=== PATIENT | male | born 1990 | race African-American/Black ===

== ENCOUNTER 2021-09-06 01:59 | Observation (INO) | payer SELFPAY ==
[2021-09-06] MEDS ORDERED: SODIUM CHLORIDE 1,000 ML IV STA ×2 (02:02→16:23)
[2021-09-06 03:05] LABS: INR 1.16 (0.83-1.09)
[2021-09-06 03:19] LABS: CHLORIDE 106 mmol/L (98-107); SODIUM 139 mmol/L (136-145)
[2021-09-06 03:22] LABS: ALBUMIN 4.1 g/dl (3.4-5.0); ANION GAP 10 MMOL/L (8-16); BLOOD UREA NITROGEN 7.2 mg/dL (7-18); CALCIUM 9.2 mg/dL (8.5-10.1); CO2 23 mmol/L (21-32)
[2021-09-06 03:23] LABS: GLUCOSE,RANDOM 84 mg/dL (74-106)
[2021-09-06] MEDS ORDERED: ONDANSETRON 4 MG/2 ML VIAL IVPUSH ONE (03:23)
[2021-09-06 03:25] LABS: SGPT/ALT 61 U/L (13-61)
[2021-09-06 03:26] LABS: CREATININE 0.9 mg/dL (0.55-1.3); SGOT/AST 143 U/L (15-37)
[2021-09-06 03:27] LABS: BILIRUBIN,TOTAL 0.4 mg/dL (0.2-1); TOT PROT 7.4 g/dl (6.4-8.2)
[2021-09-06] MEDS ORDERED: ONDANSETRON 4 MG/2 ML VIAL ONE (03:33)
[2021-09-06 03:35] LABS: ALK PHOS 46 U/L (45-117)
[2021-09-06 03:48] LABS: BASO % 0.7 % (0-2.0); EOS % 4.1 % (0-4.5); HEMOGLOBIN 14.2 GM/dL (11.7-16.9); LYMPH % 24.9 % (8-40); MCH 27.3 pg (25.7-33.7); MEAN CELL VOLUME 82.9 fl (80-96); MEAN PLT VOLUME 8.4 fl (7.5-11.1); MONO % 4.9 % (3.8-10.2); NEUT % 65.4 % (42.8-82.8); PLATELET COUNT 264 10^3/uL (134-434); RBC 5.19 M/mm3 (4.00-5.60); RDW 14.2 % (11.9-15.9); WHITE BLOOD COUNT 9.1 K/mm3 (4.0-10.0)
[2021-09-06] MEDS ORDERED: SODIUM CHLORIDE 0.9% 500 ML INFUS.BAG IV ONE (05:10)
[2021-09-06 06:00] LABS: URINE APPEARANCE CLEAR; URINE BILIRUBIN NEGATIVE (NEGATIVE); URINE COLOR YELLOW; URINE GLUCOSE (UA) NEGATIVE (NEGATIVE); URINE KETONE NEGATIVE (NEGATIVE); URINE LEUK ESTERASE NEGATIVE (NEGATIVE); URINE NITRITE NEGATIVE (NEGATIVE); URINE PROTEIN NEGATIVE (NEGATIVE); URINE UROBILINOGEN 0.2 mg/dL (0.2-1.0)
[2021-09-06 06:09] LABS: OPIATES, URI NEGATIVE (NEGATIVE); URINE BARBITURATES NEGATIVE (NEGATIVE)
[2021-09-06 06:10] LABS: COCAINE, UR NEGATIVE (NEGATIVE); METHADONE, UR NEGATIVE (NEGATIVE); PHENCYCLIDINE,URINE NEGATIVE (NEGATIVE)
[2021-09-06 06:19] LABS: URINE AMPHETAMINES NEGATIVE (NEGATIVE); URINE BENZODIAZEPINES NEGATIVE (NEGATIVE)
[2021-09-06] MEDS ORDERED: LACTATED RINGERS SOLUTION 1,000 ML IV SCH (08:15)
[2021-09-06 13:15] VITALS: BMI 24.7
[2021-09-06] MEDS ORDERED: LACTATED RINGERS SOLUTION 1,000 ML/1,000 ML INFUS.BAG IV SCH (16:30)
[2021-09-06 16:55] LABS: CALCIUM 9.6 mg/dL (8.5-10.1)
[2021-09-06 16:56] LABS: BLOOD UREA NITROGEN 8.1 mg/dL (7-18)
[2021-09-06 16:59] LABS: CREATININE 0.8 mg/dL (0.55-1.3)
[2021-09-06 17:00] LABS: TOT PROT 7.6 g/dl (6.4-8.2)
[2021-09-06 17:04] LABS: ALBUMIN 4.4 g/dl (3.4-5.0)
[2021-09-06 17:08] LABS: BILIRUBIN,TOTAL 0.6 mg/dL (0.2-1)
[2021-09-06] MEDS: LACTATED RINGERS SOLUTION 1,000 ML IV SCH ×2 (18:02→23:23)
[2021-09-07 10:03] LABS: BASO % 0.9 % (0-2.0); EOS % 6.5 % (0-4.5); HEMATOCRIT 42.6 % (35.4-49); HEMOGLOBIN 13.6 GM/dL (11.7-16.9); MCH 26.5 pg (25.7-33.7); MCHC 31.9 g/dl (32.0-35.9); MEAN CELL VOLUME 83.1 fl (80-96); MEAN PLT VOLUME 8.9 fl (7.5-11.1); MONO % 4.7 % (3.8-10.2); NEUT % 50.9 % (42.8-82.8); PLATELET COUNT 275 10^3/uL (134-434); RBC 5.13 M/mm3 (4.00-5.60); RDW 14.5 % (11.9-15.9); WHITE BLOOD COUNT 7.2 K/mm3 (4.0-10.0)
[2021-09-07 10:04] VITALS: BP 154/96; PULSE 61; TEMP 98.6
[2021-09-07 10:20] LABS: CALCIUM 9.5 mg/dL (8.5-10.1)
[2021-09-07 10:21] LABS: ALBUMIN 3.9 g/dl (3.4-5.0); BLOOD UREA NITROGEN 6.4 mg/dL (7-18); MAGNESIUM 1.7 mg/dL (1.8-2.4)
[2021-09-07 10:24] LABS: CREATININE 0.8 mg/dL (0.55-1.3); PHOSPHOROUS 2.3 mg/dL (2.5-4.9)
[2021-09-07 10:25] LABS: BILIRUBIN,TOTAL 0.8 mg/dL (0.2-1); TOT PROT 6.8 g/dl (6.4-8.2)
[2021-09-07] MEDS ORDERED: MAGNESIUM SULF 50% (8.12 MEQ/2 ML-1 GM VIAL) IVPB ONE (10:37)
[2021-09-07] MEDS ORDERED: MAGNESIUM OXIDE 400 MG TABLET (FP) PO ONE (10:45)
[2021-09-07] MEDS: LACTATED RINGERS SOLUTION 1,000 ML IV SCH (11:04)
[2021-09-07] MEDS ORDERED: PT OWN MED DRAWER 7, Y5N ONE (11:14)
[2021-09-07] MEDS ORDERED: NAPH,MB-DB/K PH,MBDB POWDER PACKET PO ONE (11:30)
[2021-09-07] MEDS ORDERED: SODIUM PHOSPHATE - 30 MM in SODIUM CHLORIDE 500 ML IVPB ONE (12:00)
== END 2021-09-07 13:38 | disposition home or self-care (01) ==
LOC: JER 01:59 → JERBED 05:08 → J8W 09:26
PROVIDERS: ADMIT Internal Medicine; ATTEND Internal Medicine
PROC: 3E0337Z Introduction of Electrolytic and Water Balance Substance into Peripheral Vein, Percutaneous Approach (ICD-10-PCS; principal; 2021-09-06)
PROC: 3E033GC Introduction of Other Therapeutic Substance into Peripheral Vein, Percutaneous Approach (ICD-10-PCS; 2021-09-06)
DX: F10.129 Alcohol abuse with intoxication, unspecified (principal); M62.82 Rhabdomyolysis; F19.19 Other psychoactive substance abuse with unspecified psychoactive substance-induced disorder; Z29.9 Encounter for prophylactic measures, unspecified
CPT/HCPCS: 36415; 71045-TC-FY; 80053; 80061; 80307; 81003; 82550; 82553; 83735; 84100; 84484; 85025; 85027; 85610; 93005; 93010; 99285-25; C9803; G0378; U0003; U0005

== ENCOUNTER 2024-05-19 11:51 | Emergency (ER) | payer SELFPAY ==
[2024-05-19 11:55] VITALS: BP 129/71; PULSE 59; RESP 18; TEMP 98.3; BMI 24.6
[2024-05-19] MEDS: IBUPROFEN 400 MG TABLET (FP) PO ONE (12:53)
[2024-05-19] MEDS ORDERED: IBUPROFEN 400 MG TABLET (FP) PO ONE (12:55)
[2024-05-19 13:40] LABS: EPI CELLS 21 /uL (0-25.1); HYALINE CASTS 1 /uL (0-3.1); PH,URINE 6.5 (5.0-8.0); URINE APPEARANCE CLEAR; URINE BACTERIA 14 /uL (0-1359); URINE BILIRUBIN NEGATIVE (NEGATIVE); URINE COLOR YELLOW; URINE GLUCOSE (UA) NEGATIVE (NEGATIVE); URINE KETONE NEGATIVE (NEGATIVE); URINE LEUK ESTERASE 2+ (NEGATIVE); URINE NITRITE NEGATIVE (NEGATIVE); URINE PROTEIN NEGATIVE (NEGATIVE); URINE RBC 9 /uL (0-23.9); URINE UROBILINOGEN 0.2 mg/dL (0.2-1.0); URINE WBC 276 /uL (0-25.8)
[2024-05-19] MEDS ORDERED: cefTRIAXone SODIUM 1 GM VIAL ONE (13:51)
[2024-05-19] MEDS ORDERED: AZITHROMYCIN 500 MG TABLET ONE (13:51)
[2024-05-19] MEDS: AZITHROMYCIN 500 MG TABLET PO ONE (14:14)
== END 2024-05-19 14:33 | disposition home or self-care (01) ==
LOC: JER 11:51
DX: G44.209 Tension-type headache, unspecified, not intractable (principal); Z20.2 Contact with and (suspected) exposure to infections with a predominantly sexual mode of transmission
CPT/HCPCS: 36415; 81003; 87086; 87491; 87591; 93005; 93010; 99284-25